=== PATIENT | male | born 2000 | race African-American/Black ===

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

== ENCOUNTER 2021-04-22 19:03 | Emergency (ER) | payer OTHER ==
[~2021-04-22] VITALS: Ht 190.5 cm; Wt 79.5 kg
[2021-04-22 19:04] VITALS: BP 132/77
--- OUTSIDE RECORDS SUMMARY | 2021-04-22 19:10 | CCD ---
Continuity of Care Document (CCD) Created on: 01/27/2021 Evan Schawrtz External Reference #: [id number] : 2000 Sex: Male Author Author Evan AUGUSTE F.N.P. Organization Unknown Address [address], [address] [place] [address] Phone [phone] Care Team Providers Care Copper Tapper Name Role Phone [facility] [phone] Problems Description No Information Available Social History Type Date Description Comments Sex Unknown ETOH Use Denies alcohol use Tobacco Use Start: Unknown Patient has never smoked Sun Exposure moderate amount of sun exposure Sun Exposure Has never used tanning bed Sun Exposure Has never experienced blistering from sunburns Sun Exposure Does not use sunscreen Allergies, Adverse Reactions, Alerts Description No Known Drug Allergies Medications Active Medications SIG Qnty Indications Ordering Provide r Date Zyrtec Allergy 10mg Tablets 1 by mouth twice a day 60tabs R21 Michaela Auguste, F.N.P. 2020 History Medications No Active Medications Unknown 11/2020 - 01/20/2021 Immunizations Description No Information Available Vital Signs Date Vital Result Comment 01/20/2021 8:04am BP Systolic 132 mmHg BP Diastolic 86 mmHg Respiratory Rate 65 /min Height 75 inches 6'3" Results Description No Information Available Procedures Date Code Description Status 01/20/2021 40642 Office Consultation Level 4 Comp leted Medical Devices Description No Information Available Encounters Type Date Location Provider Dx Diagnosis Office Visit 01/20/2021 7:45a Main Office Michaela Auguste, F.N.P. 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 * Follow up:* 2-3 weeks - rash fu Records release - labs Functional Status Description No Information Available Mental Status Description No Information Available Referrals Refer to Reason for Referral Status Appt Date Michaela Auguste FNP Created [address], [address] [place] [address] [phone]
--- OUTSIDE RECORDS SUMMARY | 2021-04-22 19:10 | CCD ---
Author Author [facility] Organization [facility] Address Unknown Phone Unavailable Care Team Providers Care Access Specialist Name Role Phone Dunklin, Lisa SOLID WASTE DIVISION SUPERVISOR Unavailable Unavailable Dunklin, Lisa SOLID WASTE DIVISION SUPERVISOR Unavailable Unavailable Dunklin, Lisa SOLID WASTE DIVISION SUPERVISOR Unavailable Unavailable Dunklin, Lisa SOLID WASTE DIVISION SUPERVISOR Unavailable Unavailable Dunklin, Lisa SOLID WASTE DIVISION SUPERVISOR Unavailable Unavailable Dunklin, Lisa SOLID WASTE DIVISION SUPERVISOR Unavailable Unavailable Dunklin, Lisa SOLID WASTE DIVISION SUPERVISOR Unavailable Unavailable Dunklin, Lisa SOLID WASTE DIVISION SUPERVISOR Unavailable Unavailable Dunklin, Lisa SOLID WASTE DIVISION SUPERVISOR Unavailable Unavailable Dunklin, Lisa SOLID WASTE DIVISION SUPERVISOR Unavailable Unavailable Dunklin, Lisa SOLID WASTE DIVISION SUPERVISOR Unavailable Unavailable Dunklin, Lisa SOLID WASTE DIVISION SUPERVISOR Unavailable Unavailable Dunklin, Lisa SOLID WASTE DIVISION SUPERVISOR Unavailable Unavailable Dunklin, Lisa SOLID WASTE DIVISION SUPERVISOR Unavailable Unavailable Dunklin, Lisa SOLID WASTE DIVISION SUPERVISOR Unavailable Unavailable Dunklin, Lisa SOLID WASTE DIVISION SUPERVISOR Unavailable Unavailable Dunklin, Lisa SOLID WASTE DIVISION SUPERVISOR Unavailable Unavailable Dunklin, Lisa SOLID WASTE DIVISION SUPERVISOR Unavailable Unavailable Dunklin, Lisa SOLID WASTE DIVISION SUPERVISOR Unavailable Unavailable Dunklin, Lisa SOLID WASTE DIVISION SUPERVISOR Unavailable Unavailable Dunklin, Lisa SOLID WASTE DIVISION SUPERVISOR Unavailable Unavailable Dunklin, Lisa SOLID WASTE DIVISION SUPERVISOR Unavailable Unavailable Dunklin, Lisa SOLID WASTE DIVISION SUPERVISOR Unavailable Unavailable Dunklin, Lisa SOLID WASTE DIVISION SUPERVISOR Unavailable Unavailable Dunklin, Lisa SOLID WASTE DIVISION SUPERVISOR Unavailable Unavailable Dunklin, Lisa SOLID WASTE DIVISION SUPERVISOR Unavailable Unavailable Dunklin, Lisa SOLID WASTE DIVISION SUPERVISOR Unavailable Unavailable Dunklin, Savannah Jennings SOLID WASTE DIVISION SUPERVISOR Unavailable Unavailable Dunklin, Savannah Jennings SOLID WASTE DIVISION SUPERVISOR Unavailable Unavailable Dunklin, Savannah Jennings SOLID WASTE DIVISION SUPERVISOR Unavailable Unavailable Dunklin, Savannah Jennings SOLID WASTE DIVISION SUPERVISOR Unavailable Unavailable Dunklin, Savannah Jennings SOLID WASTE DIVISION SUPERVISOR Unavailable Unavailable Dunklin, Savannah Jennings SOLID WASTE DIVISION SUPERVISOR Unavailable Unavailable Dunklin, Savannah Jennings SOLID WASTE DIVISION SUPERVISOR Unavailable Unavailable Dunklin, Savannah Jennings SOLID WASTE DIVISION SUPERVISOR Unavailable Unavailable Dunklin, Savannah Jennings SOLID WASTE DIVISION SUPERVISOR Unavailable Unavailable Re-disclosure Warning The records that you are about to access may contain information from federally-assisted alcohol or drug abuse programs. If such information is present, then the following federally mandated warning applies: This information has been disclosed to you from records protected by federal confidentiality rules (42 CFR part 2). The federal rules prohibit you from making any further disclosure of this information unless further disclosure is expressly permitted by the written consent of the person to whom it pertains or as otherwise permitted by 42 CFR part 2. A general authorization for the release of medical or other information is NOT sufficient for this purpose. The Federal rules restrict any use of the information to criminally investigate or prosecute any alcohol or drug abuse patient.The records that you are about to access may contain highly sensitive health information, the redisclosure of which is protected by Article 27-F of the [facility] Public Health law. If you continue you may have access to information: Regarding HIV / AIDS; Provided by facilities licensed or operated by the [facility] Office of Mental Health; or Provided by the [facility] Office for People With Developmental Disabilities. If such information is present, then the following [facility] mandated warning applies: This information has been disclosed to you from confidential records which are protected by state law. State law prohibits you from making any further disclosure of this information without the specific written consent of the person to whom it pertains, or as otherwise permitted by law. Any unauthorized further disclosure in violation of state law may result in a fine or custodial sentence or both. A general authorization for the release of medical or other information is NOT sufficient authorization for further disc losure. Encounters Encounter Providers Location Date Indications Data Source(s ) Outpatient Attender: Michaela Dunklin SOLID WASTE DIVISION SUPERVISOR Main Office 01/20/2021 07:45:00 AM EDT [facility] Medications Medication Brand Name Start Date Product Form Dose Route Admi nistrative Instructions Pharmacy Instructions Status Indications Reaction Description Data Source(s) No Active Medications 01/20/2021 12:00:00 AM EDT completed [facility] ([facility] Nurse [facility]) cetirizine hydrochloride 10 MG Oral Tablet [Zyrtec] Zyrtec A llergy 01/20/2021 12:00:00 AM EDT ORAL active M [facility]ENT ([facility] Nurse [facility]) Insurance Providers Payer name Policy type / Coverage type Policy ID Covered democrat ID Covered democrat's relationship to shi Policy Shi Plan Information U [id number] Self [id number] [facility] ACTIVE DUTY [id number] SP [id number] [employer] [facility] REG O [id number] S [id number] Problems, Conditions, and Diagnoses No Information Surgeries/Procedures Procedure Description Date Indications Data Source(s) OFFICE CONSULTATION NEW/ESTAB PATIENT 60 MIN 12:00:00 AM EDT [facility] ([facility] Nurse [facility]) Results ID Date Data Source [id number] 02/25/2021 12:00:00 AM EDT [facility] Name Value Range Interpretation Code Description Data Eli rce(s) Supporting Document(s) SARS-COV-2 Positive [facility] This lab was ordered by Eder and re ported by Eder. Procedure Social History No Information Vital Signs ID Date Data Source UNK Name Value Range Interpretation Code Description Data Source(s) Systolic blood pressure 132 mm[Hg] 132 mm[Hg] M [facility] ([facility]) Diastolic blood pressure 86 mm[Hg] 86 mm[Hg] [facility] ([facility] Nurse [facility]) Respiratory rate 65 /min 65 /min [facility] ( [facility]) Body height 75 [in_i] 75 [in_i] [facility] ([facility]) 6'3"
[2021-04-22] MEDS ORDERED: IBUPROFEN 800 MG TAB PO ONE (21:45)
[2021-04-22] MEDS ORDERED: CYCL-707 PO (21:45)
[2021-04-22] MEDS ORDERED: IBUP80TA PO (21:45)
--- OUTSIDE RECORDS SUMMARY | 2021-04-22 21:55 | CCD ---
Author Author [facility] Organization [facility] Address Unknown Phone Unavailable Care Team Providers Care Wafer Fab Operator Name Role Phone [place], Lisa ENAMEL APPLIER Unavailable Unavailable [place], Lisa ENAMEL APPLIER Unavailable Unavailable [place], Lisa ENAMEL APPLIER Unavailable Unavailable [place], Lisa ENAMEL APPLIER Unavailable Unavailable [place], Lisa ENAMEL APPLIER Unavailable Unavailable [place], Lisa ENAMEL APPLIER Unavailable Unavailable [place], Lisa ENAMEL APPLIER Unavailable Unavailable [place], Lisa ENAMEL APPLIER Unavailable Unavailable [place], Lisa ENAMEL APPLIER Unavailable Unavailable [place], Lisa ENAMEL APPLIER Unavailable Unavailable [place], Lisa ENAMEL APPLIER Unavailable Unavailable [place], Lisa ENAMEL APPLIER Unavailable Unavailable [place], Lisa ENAMEL APPLIER Unavailable Unavailable [place], Lisa ENAMEL APPLIER Unavailable Unavailable [place], Lisa ENAMEL APPLIER Unavailable Unavailable [place], Lisa ENAMEL APPLIER Unavailable Unavailable [place], Lisa ENAMEL APPLIER Unavailable Unavailable [place], Lisa ENAMEL APPLIER Unavailable Unavailable [place], Lisa ENAMEL APPLIER Unavailable Unavailable [place], Lisa ENAMEL APPLIER Unavailable Unavailable [place], Lisa ENAMEL APPLIER Unavailable Unavailable [place], Lisa ENAMEL APPLIER Unavailable Unavailable [place], Lisa ENAMEL APPLIER Unavailable Unavailable [place], Lisa ENAMEL APPLIER Unavailable Unavailable [place], Lisa ENAMEL APPLIER Unavailable Unavailable [place], Lisa ENAMEL APPLIER Unavailable Unavailable [place], Lisa ENAMEL APPLIER Unavailable Unavailable [place], Savannah Jennings ENAMEL APPLIER Unavailable Unavailable [place], Savannah Jennings ENAMEL APPLIER Unavailable Unavailable [place], Savannah Jennings ENAMEL APPLIER Unavailable Unavailable [place], Savannah Jennings ENAMEL APPLIER Unavailable Unavailable [place], Savannah Jennings ENAMEL APPLIER Unavailable Unavailable [place], Savannah Jennings ENAMEL APPLIER Unavailable Unavailable [place], Savannah Jennings ENAMEL APPLIER Unavailable Unavailable [place], Savannah Jennings ENAMEL APPLIER Unavailable Unavailable [place], Savannah Jennings ENAMEL APPLIER Unavailable Unavailable Re-disclosure Warning The records that [...] is protected by Article 27-F of the [facility] Public Health law. If you continue you may have access to information: Regarding HIV / AIDS; Provided by facilities licensed or operated by the [facility] Office of Mental Health; or Provided by the [facility] Office for People With Developmental Disabilities. If such information is present, then the following [facility] mandated warning applies: This information has been [...] law may result in a fine or assisted sentence or both. A general authorization for the release of medical or other information is NOT sufficient authorization for further disc losure. Encounters Encounter Providers Location Date Indications Data Source(s ) Outpatient Attender: Michaela GUADARRAMA Main Office 01/20/2021 07:45:00 AM EDT [facility] ([facility]) Medications Medication Brand Name Start Date Product Form Dose Route Admi nistrative Instructions Pharmacy Instructions Status Indications Reaction Description Data Source(s) No Active Medications 01/20/2021 12:00:00 AM EDT completed [facility] ([facility] Nurse [facility]) cetirizine hydrochloride 10 MG Oral Tablet [Zyrtec] Zyrtec A llergy 01/20/2021 12:00:00 AM EDT ORAL active M [facility] ([facility] Nurse [facility]) Insurance Providers Payer name Policy type / Coverage type Policy ID Covered alliance party ID Covered alliance party's relationship to shi Policy Shi Plan Information U [id number] Self [id number] [place] [employer] [place] [id number] SP [id number] [employer] [facility] O [id number] S [id number] Problems, Conditions, and Diagnoses No Information Surgeries/Procedures Procedure Description Date Indications Data Source(s) OFFICE CONSULTATION NEW/ESTAB PATIENT 60 MIN 12:00:00 AM EDT [facility] ([facility]) Results ID Date Data Source [id number] 02/25/2021 12:00:00 AM EDT [facility] Name Value Range Interpretation Code Description Data Eli rce(s) Supporting Document(s) SARS-COV-2 Positive [facility] This lab was ordered by Eder and re ported by Eder. Procedure Social History No Information Vital Signs ID Date Data Source UNK Name Value Range Interpretation Code Description Data Source(s) Systolic blood pressure 132 mm[Hg] 132 mm[Hg] M [facility] ([facility]) Diastolic blood pressure 86 mm[Hg] 86 mm[Hg] [facility] ([facility]) Respiratory rate 65 /min 65 /min [facility] ( [facility]) Body height 75 [in_i] 75 [in_i] [facility] ([facility]) 6'3"
== END 2021-04-22 22:03 | disposition home or self-care (01) ==
LOC: M ED 19:03
DX: S40.212A Abrasion of left shoulder, initial encounter (principal); S43.402A Unspecified sprain of left shoulder joint, initial encounter; S16.1XXA Strain of muscle, fascia and tendon at neck level, initial encounter; V49.40XA Driver injured in collision with unspecified motor vehicles in traffic accident, initial encounter; Y92.9 Unspecified place or not applicable; Y93.9 Activity, unspecified; Y99.9 Unspecified external cause status